=== PATIENT | female | born 1980 | race Caucasian/White ===

== ENCOUNTER 2020-12-14 14:27 | Emergency (ER) | payer OTHER ==
[2020-12-14 14:37] VITALS: TEMP 98.4
[2020-12-14] MEDS ORDERED: SUMAtriptan succinate 6 MG/0.5 ML VIAL SQ STA (14:56)
[2020-12-14] MEDS ORDERED: SODIUM CHLORIDE 0.9% 1,000 ML IV STA (14:56)
[2020-12-14] MEDS ORDERED: KETOROLAC 15 MG/ML 1 ML VIAL IVP STA (14:57)
[2020-12-14] MEDS ORDERED: PROCHLORPERAZINE 10 MG TAB PO STA (14:57)
[2020-12-14 15:25] LABS: Albumin 4.7 g/dL (3.5-5.0); Calcium 9.1 mg/dL (8.4-10.2); Potassium 3.7 mmol/L (3.5-5.1); Total Bilirubin 0.6 mg/dL (0.2-1.3); Total Protein 7.7 g/dL (6.3-8.2)
--- NOTE | 2020-12-14 15:49 | CT ---
EXAMINATION TYPE: CT brain wo con DATE OF EXAM: 12/14/2020 COMPARISON: CT Brain November 04, 2011 HISTORY: Headache, dizziness, loss of vision to left eye. CT DLP: 1119.4 mGycm. Automated Exposure Control for Dose Reduction was Utilized. TECHNIQUE: CT scan of the head is performed without contrast. FINDINGS: There is no acute intracranial hemorrhage, mass effect, or midline shift identified. The ventricles and sulci are within normal limits in size. Lee-white matter differentiation is maintain ed. The globes are intact and the visualized sinuses are clear. IMPRESSION: No acute intracranial hemorrhage or midline shift is seen. No significant change from pr ior CT.
[2020-12-14 16:15] VITALS: BP 131/94; PULSE 81; RESP 18
--- NOTE | 2020-12-14 16:32 | ED ---
Headache HPI - General Chief Complaint: Headache Stated Complaint: Headache,Blurry Vision Time Seen by Provider: 12/14/20 14:48 Mode of arrival: ambulatory Limitations: no limitations - History of Present Illness Initial Comments: Patient complains of a headache. Her headache began with some flashing lights in the side of her vision. She has no chest pain or shortness of breath. She has no belly or back pain. She has no nausea or vomiting. Her visual disturbance resolved. Now she has a headache. The headache came on gradually. This is not the worse headache of her life. She took no medicine for this prior travel. She had no loss of consciousness. She denies sick contacts. She denies travel. She denies injuries. - Related Data Home Medications Medication Instructions Recorded Confirmed Buprenorphine HCl/Naloxone HCl 1 film SL DAILY 12/14/20 12/14/20 [Suboxone 2 mg-0.5 mg Sl Film] Ibuprofen [Motrin Ib] 400 mg PO Q8H PRN 12/14/20 12/14/20 clonazePAM [KlonoPIN] 1 mg PO HS 12/14/20 12/14/20 Allergies Allergy/AdvReac Type Severity Reaction Status Date / Time No Known Allergies Allergy Verified 12/14/20 16:10 Review of Systems ROS Statement: Those systems with pertinent positive or pertinent negative responses have been documented in the HPI. ROS Other: All systems not noted in ROS Statement are negative. Past Medical History Past Medical History: No Reported History Additional Past Medical History / Comment(s): OB history: 3 previous vaginal deliveries. History of Any Multi-Drug Resistant Organisms: None Reported Past Surgical History: Breast Surgery, Hysterectomy, Tubal Ligation, Uterine Ablation Additional Past Surgical History / Comment(s): recent laparoscopy and D&C Past Anesthesia/Blood Transfusion Reactions: No Reported Reaction Past Psychological History: Anxiety Smoking Status: Never smoker Past Alcohol Use History: Daily Past Drug Use History: None Reported General Exam Limitations: no limitations General appearance: alert, in no apparent distress Head exam: Present: atraumatic, normocephalic, normal inspection Eye exam: Present: normal appearance, PERRL, EOMI. Absent: scleral icterus, conjunctival injection, periorbital swelling ENT exam: Present: normal exam, mucous membranes moist Neck exam: Present: normal inspection. Absent: tenderness, meningismus, lymphadenopathy Respiratory exam: Present: normal lung sounds bilaterally. Absent: respiratory distress, wheezes, rales, rhonchi, stridor Cardiovascular Exam: Present: regular rate, normal rhythm, normal heart sounds. Absent: systolic murmur, diastolic murmur, rubs, gallop, clicks GI/Abdominal exam: Present: soft, normal bowel sounds. Absent: distended, tenderness, guarding, rebound, rigid Extremities exam: Present: normal inspection, full ROM, normal capillary refill. Absent: tenderness, pedal edema, joint swelling, calf tenderness Back exam: Present: normal inspection Neurological exam: Present: alert, oriented X3, CN II-XII intact Psychiatric exam: Present: normal affect, normal mood Skin exam: Present: warm, dry, intact, normal color. Absent: rash Course Vital Signs 12/14/20 12/14/20 14:33 16:14 Temperature 98.4 F Pulse Rate 82 81 Respiratory 20 18 Rate Blood Pressure 122/79 131/94 O2 Sat by Pulse 100 100 Oximetry Medical Decision Making - Medical Decision Making Patient presented with typical migraine-type symptoms. Head CT was negative. Laboratory studies are all normal. Patient is treated with subcu sumatriptan, as well as oral Compazine. Patient is feeling much better. She has no findings on physical examination. There is nothing to suggest a TIA or stroke or other acute emergency. She has no infectious symptoms. She is stable for discharge. - Lab Data Result diagrams: 12/14/20 15:03 Lab Results 12/14/20 Range/Units 15:03 Sodium 136 L (137-145) mmol/L Potassium 3.7 (3.5-5.1) mmol/L Chloride 105 (98-107) mmol/L Carbon Dioxide 22 (22-30) mmol/L Anion Gap 9 mmol/L BUN 13 (7-17) mg/dL Creatinine 1.17 H (0.52-1.04) mg/dL Est GFR (CKD-EPI)AfAm 68 (>60 ml/min/1.73 sqM) Est GFR (CKD-EPI)NonAf 59 (>60 ml/min/1.73 sqM) Glucose 95 (74-99) mg/dL Calcium 9.1 (8.4-10.2) mg/dL Total Bilirubin 0.6 (0.2-1.3) mg/dL AST 24 (14-36) U/L ALT 15 (4-34) U/L Alkaline Phosphatase 51 (38-126) U/L Total Protein 7.7 (6.3-8.2) g/dL Albumin 4.7 (3.5-5.0) g/dL Disposition Clinical Impression: Migraine headache Disposition: HOME SELF-CARE Condition: Good Instructions (If sedation given, give patient instructions): Acute Headache (ED) Is patient prescribed a controlled substance at d/c from ED?: No Referrals: None,Stated [Primary Care Provider] - 1-2 days Linn Robertson DO [STAFF PHYSICIAN] - 1-2 days
== END 2020-12-14 17:06 | disposition home or self-care (01) ==
LOC: EC 14:27
DX: G43.909 Migraine, unspecified, not intractable, without status migrainosus (principal); F41.9 Anxiety disorder, unspecified; Z79.899 Other long term (current) drug therapy; Z90.710 Acquired absence of both cervix and uterus
CPT/HCPCS: 36415; 80053; 70450; 99284; 96374; 96361 ×2; 96372; S0183; J3030; J1885

== ENCOUNTER → 2023-03-10 | Outpatient (CLI) | payer OTHER ==
--- NOTE | 2023-03-11 08:26 | MM ---
Reason for Exam: Screening (asymptomatic). Baseline mammogram. Patient History: Menarche at age 16. First Full-Term at age 17. Left ovary removed at age 27. Hysterectomy at age 27. Perimenopausal. Bilateral Implants. Risk Values: Stephanie 5 year model risk: 0.4%. NCI Lifetime model risk: 6.6%. Prior Study Comparison: Patient's first Mammogram. Tissue Density: The breast tissue is heterogeneously dense. This may lower the sensitivity of mammography. Findings: Analyzed By CAD. Bilateral breast implants. Capsular calcifications are present on the left. There is no suspicious group of microcalcifications or new suspicious mass in either breast. Overall Assessment: Negative, BI-RAD 1 Management: Screening Mammogram of both breasts in 1 year. A clinical breast exam by your physician is recommended on an annual basis and results should be correlated with mammographic findings. [facility] will attempt to contact patient to return for supplemental views and ultrasound if indicated. Electronically signed and approved by: Kevin Contreras DO
== END | disposition home or self-care (01) ==
LOC: RADMAMWWP 14:27
PROVIDERS: ATTEND Family Medicine
DX: Z12.31 Encounter for screening mammogram for malignant neoplasm of breast (principal)
CPT/HCPCS: 77067